=== PATIENT | female | born 1980 | race Caucasian/White ===

== ENCOUNTER → 2016-08-02 | Outpatient (CLI) | payer BC ==
[~2016-08-02] MED LIST: AMOXIL500 MG PO; CERTAGEN PO; CIPRO; FLEXERIL PO; IBUPROFEN800 MG PO; NO MEDICATIONS; PHENERGAN25 MG PO; TUSSIONEX PENN473 ML PO; VICODIN 5/1 TAB 5/50 PO
--- NOTE | ~2016-08-02 | CR145 ---
[facility] A Service of [facility] & [facility] RADIOLOGY TEXT RESULTS PATIENT: ANTONY LIN LOCATION: [facility] : 78 UNIT #: [id number] AGE: [address]: Serene Gonzalez MD SEX: F ORDER DR: [id number] [facility] [address] [place], [place] [address] [id number] O MR#: [id number] Acc #: [id number] NAME: ANTONY LIN : 1980 SEX: F STUDY DATE/TIME: 08/02/2016 16:49 UNIT: [facility] ROOM: STUDY DESCRIPTION: CR Hip 1 View Rt Attending Physician: Serene Gonzalez M.D. Referring Physician: Serene Gonzalez M.D. Ordering Physician: Serene Gonzalez M.D. Primary Care Physician: Serene Gonzalez M.D. MEDICAL IMAGING REPORT This report is preliminary unless electronic signature is present EXAM Right hip 2 views 08/02/2016 HISTORY Right hip pain and lower back pain for 1 month with no known injury. FINDINGS AP and oblique examination of the hip shows adequate mineralization of the bones and a normal anatomic relationship of the femoral head with the acetabulum. There are no hypertrophic changes, fractures, dislocation, or joint capsular distension. No radiopaque foreign body is present about the soft tissues of the hip. IMPRESSION Normal hip. Dictated by... Franco Villanueva M.D. THIS IS AN ELECTRONICALLY VERIFIED REPORT Franco Villanueva M.D. at 08/05/2016 12:18 PM RACHEL/pool TD: 08/03/2016 04:11 JOB #: [id number] MEDICAL IMAGING REPORT Page 1 of 1 COPY
--- NOTE | ~2016-08-02 | CR184 ---
[facility] A Service of [facility] RADIOLOGY TEXT RESULTS PATIENT: ANTONY LIN LOCATION: [facility] : 78 UNIT #: [id number] AGE: [address]: Serene Gonzalez MD SEX: F ORDER DR: [id number] [facility] [address] [place], [place] [address] [id number] O MR#: [id number] Acc #: [id number] NAME: ANTONY LIN : 1980 SEX: F STUDY DATE/TIME: 08/02/2016 17:01 UNIT: [facility] ROOM: STUDY DESCRIPTION: CR Lumbar Spine Min 4 Views Attending Physician: Serene Gonzalez M.D. Referring Physician: Serene Gonzalez M.D. Ordering Physician: Serene Gonzalez M.D. Primary Care Physician: Serene Gonzalez M.D. MEDICAL IMAGING REPORT This report is preliminary unless electronic signature is present EXAM Lumbar spine 5 views 08/02/2016 HISTORY Low back pain and right hip pain for 1 month with no known injury. FINDINGS AP and lateral projections of the lumbar segment show good mineralization of both anterior and posterior elements. They are all anatomically normal without indication of fracture, dislocation, or malignant change of a sclerotic or lytic type. There is no congenital defect noted. The sacroiliac joints are normal. IMPRESSION Normal lumbar spine. Dictated by... Franco Villanueva M.D. THIS IS AN ELECTRONICALLY VERIFIED REPORT Franco Villanueva M.D. at 08/05/2016 12:19 PM RACHEL/pool TD: 08/03/2016 04:15 JOB #: [id number] MEDICAL IMAGING REPORT Page 1 of 1 COPY
== END | disposition home or self-care (01) ==
LOC: CRAD 16:29
DX: M54.5 Low back pain (principal); M25.551 Pain in right hip
CPT/HCPCS: 72110; 73501